=== PATIENT | female | born 1965 | race Caucasian/White ===

== ENCOUNTER 2020-12-05 06:15 | Day surgery (SDC) | payer BC, SELFPAY ==
[~2020-12-05] VITALS: Ht 167.6 cm; Wt 70.3 kg
[2020-12-05] MEDS ORDERED: METOCLOPRAMIDE HCL 10 MG/2 ML VIAL IVP PRN (07:30)
[2020-12-05] MEDS ORDERED: ONDANSETRON HCL 4 MG/2 ML VIAL IVP PRN ×2 (07:30→09:00)
[2020-12-05] MEDS ORDERED: fentaNYL CITRATE/PF 100 MCG/2 ML AMP IVP PRN ×2 (07:30)
[2020-12-05] MEDS ORDERED: LR 1,000 ML IV.SOLN IV ONE (08:35)
[2020-12-05] MEDS ORDERED: SEVOFLURANE 15 MIN GAS INH ONE (08:35)
[2020-12-05] MEDS ORDERED: PROPOFOL 200MG/ 20ML VIAL (DIPRIVAN) IV ONE (08:35)
[2020-12-05] MEDS ORDERED: CEFAZOLIN 2 GM IVPB PREMIX 50 ML IV ONE (08:35)
[2020-12-05] MEDS ORDERED: NS 1000 ML IV.SOLN IV ONE (08:35)
[2020-12-05] MEDS ORDERED: fentaNYL CITRATE 250 MCG/5 ML AMP ONE (08:35)
[2020-12-05] MEDS ORDERED: ONDANSETRON HCL 4 MG/2 ML VIAL ONE (08:35)
[2020-12-05] MEDS ORDERED: NS IRRIG SOLN 1000 ML IR ONE (08:35)
[2020-12-05] MEDS ORDERED: MIDAZOLAM HCL 5 MG/ML VIAL (VERSED) IV ONE (08:35)
[2020-12-05] MEDS ORDERED: HYDROcodone/ACETAMIN 5-325 MG TAB (NORCO/ VICODIN) PO PRN (09:00)
[2020-12-05] MEDS ORDERED: OXYCODONE/ACETAMINOPHEN 5-325 TABLET PO PRN ×2 (09:00)
[2020-12-05 10:26] VITALS: BP_SYST 124
== END 2020-12-05 10:50 | disposition home or self-care (01) ==
LOC: SDS 06:15 → SMU 06:16 → SDS 10:50
PROVIDERS: ATTEND Specialist
DX: N95.0 Postmenopausal bleeding (principal); N93.8 Other specified abnormal uterine and vaginal bleeding; N85.2 Hypertrophy of uterus; Z98.890 Other specified postprocedural states; Z79.899 Other long term (current) drug therapy; Z20.822 Contact with and (suspected) exposure to COVID-19
CPT/HCPCS: 36415; 88305; J0690; J2250; J2405; J2704; J3010; J7030; J7120